=== PATIENT | male | born 1990 | race Caucasian/White ===

== ENCOUNTER 2018-03-03 13:36 | Emergency (ER) | payer SELFPAY ==
[2018-03-03 14:17] VITALS: BP 137/75
--- NOTE | 2018-03-03 16:39 | EDM.PDOC ---
ED HPI GENERAL MEDICAL PROBLEM - General Chief Complaint: Back Pain or Injury Stated Complaint: BACK PAIN Time Seen by Provider: 03/03/18 16:22 Source of Information: Reports: Patient History Limitations: Reports: No Limitations - History of Present Illness INITIAL COMMENTS - FREE TEXT/NARRATIVE: This gentleman comes in complaining of low back pain. It's the right lower lumbar area. He denies any kind of trauma. He's had a lot of problems with his back before. He's not taking any medications for. He denies any leg weakness or any problems with bladder or bowels. Lower Back Pain Score (Numeric/FACES): 6 - Related Data Allergies Allergy/AdvReac Type Severity Reaction Status Date / Time No Known Allergies Allergy Verified 05/07/14 15:48 Home Meds: Home Meds NK [No Known Home Meds] 05/07/14 [History] Past Medical History - Past Health History Medical/Surgical History: Denies Medical/Surgical History Social & Family History - Tobacco Use Smoking Status *Q: Never Smoker - Caffeine Use Caffeine Use: Reports: Energy Drinks - Recreational Drug Use Recreational Drug Use: No ED ROS GENERAL - Review of Systems Review Of Systems: ROS reveals no pertinent complaints other than HPI. ED EXAM,LOWER BACK PAIN/INJURY - Physical Exam Exam: See Below Exam Limited By: No Limitations General Appearance: Alert, WD/WN, Mild Distress Respiratory/Chest: Lungs Clear Cardiovascular: Regular Rate, Rhythm GI/Abdominal: Non-Tender Extremities: Normal Inspection (Most likely that she can dialysis days [place]) Neurological: Alert, Normal Mood/Affect, Normal Dorsiflexion, Normal Plantar Flexion, Normal Gait, No Motor/Sensory Deficits Skin Exam: Warm, Dry Course - Vital Signs Last Recorded V/S: Last Vital Signs Temp 36.8 C 03/03/18 14:19 Pulse 76 03/03/18 14:19 Resp 11 L 03/03/18 14:19 BP 137/75 03/03/18 14:19 Pulse Ox 97 03/03/18 14:19 Departure - Departure Time of Disposition: 16:37 Disposition: Home, Self-Care 01 Condition: Fair Clinical Impression: Low back pain - Discharge Information Referrals: PCP,None [Primary Care Provider] - Additional Instructions: Take Narco 5/325 (#20) one or 2 tabs every 4 hours as needed for pain. This medication can cause sedation and impaired driving. If abused it can cause addiction. Also take a nonsteroidal anti-inflammatory medication such as ibuprofen Motrin naproxen or Aleve. The Narco already contains Tylenol. Note that the total daily dose of Tylenol should not exceed 4000 mg. If you like you can take just one of the Narco tablets and add a Tylenol tablet to that. If he suddenly have weakness in your legs or problems with your bladder or bowel that's an emergency and he should get back to the ER immediately. Otherwise if you're not better in a few days just follow-up with your Dr. ortiz
== END 2018-03-03 16:58 | disposition home or self-care (01) ==
LOC: JP.ED 13:36
DX: M54.5 Low back pain (principal)
CPT/HCPCS: 99283

== ENCOUNTER 2021-08-14 03:05 | Emergency (ER) | payer SELFPAY ==
[2021-08-14] MEDS ORDERED: Sodium Chloride 0.9% 10 ML Syringe FLUSH PRN (03:09)
[2021-08-14] MEDS ORDERED: Ketorolac 30 MG/ML SDV IVPUSH ONE (03:24)
[2021-08-14] MEDS ORDERED: Methocarbamol 500 MG Tab PO ONE (03:24)
[2021-08-14 03:38] VITALS: BP 124/74; PULSE 82
[2021-08-14 03:46] LABS: ESTIMATED GFR 103 mL/min (>60)
[2021-08-14] MEDS ORDERED: Sodium Chloride 0.9% 10 ML Syringe FLUSH ONE (04:19)
[2021-08-14] MEDS ORDERED: Iopamidol 612 MG/ML 100 ML Bottle IV PRN (04:19)
[2021-08-14] MEDS ORDERED: Bacitracin Oint 1 GM U/D Packet TOP ONE (04:25)
[2021-08-14] MEDS ORDERED: Sodium Chloride 0.9% 75 ML IV SCH (04:30)
[2021-08-14] MEDS ORDERED: HYDROmorphone 1 MG/ML Syringe IVPUSH ONE (05:43)
== END 2021-08-14 06:12 ==
LOC: JP.ED 03:05
DX: S32.058A Other fracture of fifth lumbar vertebra, initial encounter for closed fracture (principal); S60.222A Contusion of left hand, initial encounter; S70.01XA Contusion of right hip, initial encounter; S20.212A Contusion of left front wall of thorax, initial encounter; S00.01XA Abrasion of scalp, initial encounter; G89.29 Other chronic pain; M54.50 Low back pain, unspecified; F10.129 Alcohol abuse with intoxication, unspecified; Y90.4 Blood alcohol level of 80-99 mg/100 ml; V86.99XA Unspecified occupant of other special all-terrain or other off-road motor vehicle injured in nontraffic accident, initial encounter
CPT/HCPCS: 36415; 70450; 71260; 72125; 73130; 74177; 80053; 80307; 85025; 96374; 99285; A9270; J1885; J3490; Q9967

== ENCOUNTER 2023-01-26 15:04 | Emergency (ER) | payer SELFPAY ==
[2023-01-26] MEDS ORDERED: Ketorolac 30 MG/ML SDV IM ONE (16:09)
[2023-01-26 16:20] LABS: BASOPHILS ABSOLUTE AUTO 0.06 K/uL (0.00-0.10); BASOPHILS PERCENT AUTO 0.6 % (0.1-1.3); EOSINOPHILS ABSOLUTE AUTO 0.28 K/uL (0.00-0.40); EOSINOPHILS PERCENT AUTO 2.8 % (0.0-5.4); HEMATOCRIT 44.1 % (38.4-49.7); HEMOGLOBIN 15.4 g/dL (12.9-16.9); IMMATURE GRAN ABSOLUTE AUTO 0.08 K/uL (0.00-0.23); IMMATURE GRAN PERCENT AUTO 0.8 % (0.0-0.7); LYMPHOCYTES ABSOLUTE AUTO 1.76 K/uL (0.8-3.3); LYMPHOCYTES PERCENT AUTO 17.7 % (11.4-47.7); MEAN CORPUSCULAR HEMOGLOBIN 30.9 pg (31.6-35.5); MEAN CORPUSCULAR HGB CONC 34.9 g/dL (31.6-35.5); MEAN CORPUSCULAR VOLUME 88.6 fL (81.4-99.0); MONOCYTES ABSOLUTE AUTO 0.97 K/uL (0.20-0.90); MONOCYTES PERCENT AUTO 9.7 % (3.3-12.6); NEUTROPHILS PERCENT AUTO 68.4 % (40.0-78.1); PLATELET COUNT,PLT 259 K/uL (130-375); RED BLOOD CELL COUNT 4.98 M/uL (4.14-5.76)
[2023-01-26 16:42] LABS: BLOOD UREA NITROGEN,BUN 12 mg/dL (7-18); CALCIUM 8.3 mg/dL (8.5-10.1); CARBON DIOXIDE,CO2 29 mmol/L (21-32); CHLORIDE,CL 100 mmol/L (100-108); CREATININE 0.9 mg/dL (0.8-1.3); ESTIMATED GFR 115 mL/min (>60); GLUCOSE RANDOM 111 mg/dL (74-106); SODIUM,NA 137 mmol/L (140-148); TROPONIN I HIGH SENSITIVITY 6.7 pg/mL (<=60.3)
[2023-01-26] MEDS ORDERED: LORazepam 1 MG Tab PO ONE (17:25)
[2023-01-26 17:44] VITALS: BP 148/104; PULSE 85
== END 2023-01-26 18:50 | disposition home or self-care (01) ==
LOC: JP.ED 15:04
DX: R07.89 Other chest pain (principal); I10 Essential (primary) hypertension
CPT/HCPCS: 36415; 71045; 80048; 84484; 85025; 93005; 96372; 99285; A9270; J1885

== ENCOUNTER 2024-10-20 17:21 | Emergency (ER) | payer OTHER ==
[2024-10-20 18:11] LABS: BASOPHILS ABSOLUTE AUTO 0.09 K/uL (0.00-0.10); BASOPHILS PERCENT AUTO 0.7 % (0.1-1.3); EOSINOPHILS ABSOLUTE AUTO 0.08 K/uL (0.00-0.40); EOSINOPHILS PERCENT AUTO 0.6 % (0.0-5.4); IMMATURE GRAN ABSOLUTE AUTO 0.06 K/uL (0.00-0.23); IMMATURE GRAN PERCENT AUTO 0.5 % (0.0-0.7); LYMPHOCYTES ABSOLUTE AUTO 1.58 K/uL (0.8-3.3); LYMPHOCYTES PERCENT AUTO 12.1 % (11.4-47.7); MONOCYTES ABSOLUTE AUTO 0.98 K/uL (0.20-0.90); MONOCYTES PERCENT AUTO 7.5 % (3.3-12.6); NEUTROPHILS ABSOLUTE AUTO 10.24 K/uL (1.0-7.6); NEUTROPHILS PERCENT AUTO 78.6 % (40.0-78.1); PLATELET COUNT,PLT 314 K/uL (130-375); RED BLOOD CELL COUNT 4.72 M/uL (4.14-5.76); WHITE BLOOD CELL COUNT,WBC 13.0 K/uL (3.2-11.0)
[2024-10-20 18:31] LABS: INR 1.1
[2024-10-20 18:37] LABS: A/G RATIO 1.1 (1.2-2.2); ALANINE AMINOTRANSFERASE,ALT 76 U/L (12-78); ASPARTATE AMNIOTRANSFERASE,AST 29 U/L (15-37); BILIRUBIN TOTAL 0.6 mg/dL (0.2-1.0); BLOOD UREA NITROGEN,BUN 13 mg/dL (7-18); CARBON DIOXIDE,CO2 26 mmol/L (21-32); CHLORIDE,CL 101 mmol/L (100-108); CREATININE 0.9 mg/dL (0.8-1.3); EST CRCL DRUG DOSING (CG) 133.19 mL/min; ESTIMATED GFR 114 mL/min (>60); GLUCOSE RANDOM 120 mg/dL (74-106); POTASSIUM,K 3.8 mmol/L (3.6-5.2); PROTEIN TOTAL,TP 7.6 g/dL (6.4-8.2); SODIUM,NA 137 mmol/L (140-148); TROPONIN I HIGH SENSITIVITY 4.3 pg/mL (<=60.3)
[2024-10-20 19:08] VITALS: BP 145/94; PULSE 83
== END 2024-10-20 19:35 ==
LOC: JP.ED 17:21
DX: R07.9 Chest pain, unspecified (principal); I10 Essential (primary) hypertension
CPT/HCPCS: 36415; 71045; 71045-26; 80053; 83605; 84484; 85025; 85379; 85610; 99285